=== PATIENT | male | born 1970 | race Caucasian/White ===

== ENCOUNTER 2020-02-27 12:11 | Inpatient (IN) | payer OTHER ==
[~2020-02-27] VITALS: Ht 185.4 cm; Wt 86.2 kg
== END 2020-02-29 21:13 | disposition home or self-care (01) | DRG 690 ==
LOC: ER 12:11 → SEC-K 19:15 → MEDI 19:15
PROVIDERS: ADMIT Internal Medicine; ATTEND Internal Medicine
PROC: 4A033R1 Measurement of Arterial Saturation, Peripheral, Percutaneous Approach (ICD-10-PCS; principal; 2020-02-27)
DX: N39.0 Urinary tract infection, site not specified (principal); N41.0 Acute prostatitis; E86.0 Dehydration; Z20.828 Contact with and (suspected) exposure to other viral communicable diseases; B96.29 Other Escherichia coli [E. coli] as the cause of diseases classified elsewhere

== ENCOUNTER → 2020-06-13 | Outpatient (CLI) | payer OTHER | END | disposition home or self-care (01) | LOC: TOM 10:15 | DX: S22.42XD Multiple fractures of ribs, left side, subsequent encounter for fracture with routine healing (principal) ==

== ENCOUNTER 2024-01-16 10:01 | Outpatient (CLI) | payer OTHER ==
[~2024-01-16 10:01] MED LIST: ZITHROMAX500 MG PO
== END 2024-01-16 10:10 | disposition home or self-care (01) ==
LOC: RAD 10:01
PROVIDERS: ATTEND General Practice
DX: M25.561 Pain in right knee (principal)

== ENCOUNTER 2024-01-23 10:29 | Outpatient (CLI) | payer OTHER | END 2024-01-23 10:35 | disposition home or self-care (01) | LOC: MRI 10:29 | PROVIDERS: ATTEND General Practice | DX: M25.561 Pain in right knee (principal); M25.461 Effusion, right knee | CPT/HCPCS: 73721 ==